=== PATIENT | female | born 1960 | race Caucasian/White ===

== ENCOUNTER 2016-07-25 05:22 | Inpatient (IN) | payer BC ==
[~2016-07-25 05:22] MED LIST: CALCIUM WITH V1 EAC2 PO; COSOPT EYE DROP10 ML EACH EYE; ESTRADIOL TRAN1 EAC1 TD; FLAXSEED OIL1000 M3 PO; GREEN TEA1 EACH PO; IBUPROFEN200 M2 PO; OMEGA-3 + VITA200 ML PO; OSTEO BI-FLEX1 EAC5 PO; VITAMIN B12-FO1 EAC1 PO; VITAMIN E400 UNI4 PO; ZYRTEC10 M7 PO
[2016-07-25] MEDS ORDERED: ASPIRIN EC81 MG PO (06:04)
[2016-07-26 05:15] LABS: BASO % 0.2 % (0-2); EOS % 0.2 % (0-7); HCT-HEMATOCRIT 36.4 % (34.0-49.0); IMMATURE GRANULOCYTES ABSOLUTE 0.01 tho/cmm (0-0.03); IMMATURE GRANULOCYTES PERCENT 0.1 % (0-0.3); LYMPH % 21.2 % (20-45); MCH (MEAN CORPUSCULAR HGB) 30.7 pg (28.0-32.0); MCV (MEAN CELL VOLUME) 93.1 fl (82.0-96.0); MEAN PLATELET VOLUME 10.9 cmc (9.4-12.4); MONO % 6.9 % (0-12); MONOCYTE ABSOLUTE COUNT 0.6 tho/cmm (0.0-1.2); NEUTROPHIL ABSOLUTE COUNT 6.7 tho/cmm (1.6-8.0); NEUTROPHIL-AUTOMATED 6.7 tho/cmm (1.6-8.0); NEUTROPHILS % 71.4 % (40-80); PLATELET COUNT 232 tho/cmm (150-450); RED BLOOD COUNT 3.91 mil/cmm (4.00-5.20); RED CELL DISTRIBUTION WIDTH 14.1 % (12.4-16.4); WHITE BLOOD COUNT 9.3 tho/cmm (4.0-10.0)
[2016-07-26 05:21] LABS: ANION GAP 10 mmol/L (0-20); BLOOD UREA NITROGEN 14 mg/dl (6-24); CALCIUM 8.5 mg/dl (8.5-10.5); CARBON DIOXIDE-VENOUS 29 mmol/L (22-32); CHLORIDE 105 mmol/l (96-110); CREATININE 0.69 mg/dl (0.50-1.10); GLUCOSE 122 mg/dL (70-110); POTASSIUM 4.2 mmol/L (3.7-5.1); SODIUM 140 mmol/L (135-145); eGFR VALUE FOR BLACK >90 mL/Min
[2016-07-27] MEDS ORDERED: ROBAXIN-750750 M1 PO (09:08)
[2016-07-27] MEDS ORDERED: NORCO 5-325 TA1 EACH PO (09:09)
[2016-07-27] MEDS ORDERED: SENOKOT-S TABL1 EACH PO (09:10)
== END 2016-07-27 13:45 | DRG 460 ==
LOC: SHSC 05:22 → ORE 07:38 → PACU 11:24 → 5EB 13:54 → 5EA 23:50
PROVIDERS: ADMIT Neurological Surgery
PROC: 0SG00AJ Fusion of Lumbar Vertebral Joint with Interbody Fusion Device, Posterior Approach, Anterior Column, Open Approach (ICD-10-PCS; principal; 2016-07-25)
PROC: 0SG0071 Fusion of Lumbar Vertebral Joint with Autologous Tissue Substitute, Posterior Approach, Posterior Column, Open Approach (ICD-10-PCS; 2016-07-25)
PROC: 0SB20ZZ Excision of Lumbar Vertebral Disc, Open Approach (ICD-10-PCS; 2016-07-25)
PROC: 8E0WXBZ Computer Assisted Procedure of Trunk Region (ICD-10-PCS; 2016-07-25)
PROC: 07DR3ZZ Extraction of Iliac Bone Marrow, Percutaneous Approach (ICD-10-PCS; 2016-07-25)
DX: M43.16 Spondylolisthesis, lumbar region (principal); M16.9 Osteoarthritis of hip, unspecified; M48.06 Spinal stenosis, lumbar region; M54.16 Radiculopathy, lumbar region
CPT/HCPCS: C1713; J0690; J1170; J2250; J2800; J3010; J3370